=== PATIENT | male | born 1950 | race Caucasian/White ===

== ENCOUNTER → 2017-01-02 | Outpatient (CLI) | payer OTHER ==
[~2017-01-02] MED LIST: ASPIRIN (CHILDR81 MG PO; ASPIRIN325 MG PO; COREG12.5 MG PO; COZAAR50 MG PO; LIPITOR40 MG PO; NEURONTIN600 MG PO; PLAVIX75 MG PO; RANEXA ER500 MG PO; XARELTO20 MG PO; ZYLOPRIM100 MG PO
== END | disposition disaster alternative care site (69) ==
LOC: GAMB 22:55
DX: E86.0 Dehydration (principal); I63.9 Cerebral infarction, unspecified; I48.2 Chronic atrial fibrillation; R04.0 Epistaxis; W01.0XXA Fall on same level from slipping, tripping and stumbling without subsequent striking against object, initial encounter; Z79.01 Long term (current) use of anticoagulants; Z79.899 Other long term (current) drug therapy
CPT/HCPCS: A0425; A0427; J7030